=== PATIENT | female | born 1975 | race Caucasian/White ===

== ENCOUNTER 2021-05-23 14:18 | Emergency (ER) | payer OTHER ==
[~2021-05-23] VITALS: Ht 175.3 cm; Wt 260.0 kg
[2021-05-23 14:40] VITALS: BP 149/86
[2021-05-23 15:20] LABS: BASOPHILS % (AUTO) 0.5 % (0-1); EOSINOPHILS % (AUTO) 0 % (0-6); HEMATOCRIT 41.5 % (35.0-45.0); HEMOGLOBIN 14.4 g/dl (12.0-16.0); LYMPHOCYTES # (AUTO) 0.9 X10'3 (1.1-4.8); LYMPHOCYTES % (AUTO) 19.8 % (21-51); MEAN CORPUSCULAR HEMOGLOBIN 30.4 PG (27.0-31.0); MEAN CORPUSCULAR HGB CONC 34.6 g/dL (33.0-36.5); MEAN CORPUSCULAR VOLUME 87.7 FL (78-98); MEAN PLATELET VOLUME 7.9 FL (7.4-10.4); MONOCYTES # (AUTO) 0.4 X10'3 (0-0.9); MONOCYTES % (AUTO) 8.4 % (2-12); NEUTROPHILS # (AUTO) 3.1 X10'3 (1.8-7.7); NEUTROPHILS % (AUTO) 71.3 % (42-75); PLATELET COUNT 257 X10'3 (140-440); RED BLOOD COUNT 4.74 X10'6 (4.20-5.60); RED CELL DISTRIBUTION WIDTH 12.9 % (11.5-14.5); WHITE BLOOD COUNT 4.3 X10'3 (4.5-11.0)
[2021-05-23 15:30] LABS: ALANINE AMINOTRANSFERASE 36 U/L (12-78); ALBUMIN 3.5 G/DL (3.4-5.0); ALBUMIN/GLOBULIN RATIO 0.8 (1.1-1.5); ALKALINE PHOSPHATASE 75 IU/L (46-116); ANION GAP 9 (8-16); ASPARTATE AMINO TRANSFERASE 31 U/L (10-37); BILIRUBIN,TOTAL 0.4 MG/DL (0.1-1.0); BLOOD UREA NITROGEN 9 MG/DL (7-18); BUN/CREATININE RATIO 12.3 (6.6-38.0); CALCIUM 8.5 MG/DL (8.5-10.1); CHLORIDE 102 MMOL/L (99-107); CREATININE 0.73 MG/DL (0.40-0.90); GLUCOSE 105 MG/DL (70-104); POTASSIUM 3.7 MMOL/L (3.5-5.1); SODIUM 138 MMOL/L (135-145); TOTAL CARBON DIOXIDE 27.2 MMOL/L (24-32); TOTAL PROTEIN 7.8 G/DL (6.4-8.2); eGFR 85 ML/MIN
[2021-05-23] MEDS ORDERED: iohexol 350MG/ML 100ml bottle IV ONE (17:34)
[2021-05-23] MEDS ORDERED: SOTROVIMAB 500mg injection 500 MG in normal saline 100ml IV soln 100 ML IV ONE (18:45)
[2021-05-23] MEDS ORDERED: BUDE180A INH (19:04)
[2021-05-23] MEDS ORDERED: ALBU6.7H9 INH (19:04)
[2021-05-23] MEDS ORDERED: LEVO500T90 PO (19:04)
[2021-05-23] MEDS ORDERED: PRED10TA23 PO (19:04)
[2021-05-25] MEDS ORDERED: ALB0.5UD IH (14:34)
== END 2021-05-23 20:33 | disposition home or self-care (01) ==
LOC: ER 14:19
DX: U07.1 COVID-19 (principal); J12.82 Pneumonia due to coronavirus disease 2019; E06.3 Autoimmune thyroiditis; Z88.6 Allergy status to analgesic agent; Z79.899 Other long term (current) drug therapy
CPT/HCPCS: 36415; 71045; 71275; 80053; 83880; 84484; 85025; 93005; 99285; J3490; M0247; Q0247; Q9967

== ENCOUNTER 2021-10-03 14:01 | Emergency (ER) | payer OTHER ==
[~2021-10-03] VITALS: Ht 175.3 cm; Wt 118.2 kg
[~2021-10-03 14:01] MED LIST: ALBU6.7H9 INH; BUDE180A INH
[2021-10-03] MEDS ORDERED: diazepam 5mg tablet PO ONE ×2 (14:55→21:00)
[2021-10-03] MEDS ORDERED: ondansetron 4mg rapidly disintigrating tab PO ONE (14:55)
[2021-10-03] MEDS ORDERED: meclizine 12.5mg tablet PO ONE ×2 (14:55→21:00)
[2021-10-03] MEDS ORDERED: normal saline 1000ML IV soln IVB ONE (17:45)
[2021-10-03 19:17] LABS: BASOPHILS % (AUTO) 0.6 % (0-1); EOSINOPHILS # (AUTO) 0.1 X10'3 (0-0.9); EOSINOPHILS % (AUTO) 0.8 % (0-6); HEMOGLOBIN 13.9 g/dl (12.0-16.0); LYMPHOCYTES % (AUTO) 13.4 % (21-51); MEAN CORPUSCULAR HEMOGLOBIN 30.6 PG (27.0-31.0); MEAN CORPUSCULAR HGB CONC 34.7 g/dL (33.0-36.5); MEAN CORPUSCULAR VOLUME 88.2 FL (78-98); MEAN PLATELET VOLUME 8.4 FL (7.4-10.4); MONOCYTES # (AUTO) 0.4 X10'3 (0-0.9); MONOCYTES % (AUTO) 4.6 % (2-12); NEUTROPHILS # (AUTO) 6.1 X10'3 (1.8-7.7); NEUTROPHILS % (AUTO) 80.6 % (42-75); PLATELET COUNT 299 X10'3 (140-440); RED BLOOD COUNT 4.53 X10'6 (4.20-5.60); RED CELL DISTRIBUTION WIDTH 12.9 % (11.5-14.5); WHITE BLOOD COUNT 7.6 X10'3 (4.5-11.0)
[2021-10-03 19:26] LABS: ALANINE AMINOTRANSFERASE 22 U/L (12-78); ALBUMIN 3.6 G/DL (3.4-5.0); ALBUMIN/GLOBULIN RATIO 0.9 (1.1-1.5); ALKALINE PHOSPHATASE 75 IU/L (46-116); ANION GAP 9 (8-16); ASPARTATE AMINO TRANSFERASE 15 U/L (10-37); BILIRUBIN,TOTAL 0.3 MG/DL (0.1-1.0); BLOOD UREA NITROGEN 15 MG/DL (7-18); CHLORIDE 105 MMOL/L (99-107); CREATININE 0.94 MG/DL (0.40-0.90); GLUCOSE 107 MG/DL (70-104); POTASSIUM 3.8 MMOL/L (3.5-5.1); SODIUM 139 MMOL/L (135-145); TOTAL CARBON DIOXIDE 25.4 MMOL/L (24-32); TOTAL PROTEIN 7.6 G/DL (6.4-8.2); eGFR 64 ML/MIN
[2021-10-03] MEDS: diazepam inj 5 MG/ML inj. IV ONE ×2 (19:58→20:16)
--- NOTE | 2021-10-03 20:06 | NUR ---
Pt refused IV valium, MD berry made aware.
--- NOTE | 2021-10-03 20:16 | NUR ---
Pt. refused IV Diazepam. Can not waste in [facility]. Pharmacy notified of issue. Wasted the remaining 5mg/1ml with MART[facility] Oliva.
[2021-10-03 20:20] LABS: CLARITY,URINE CLEAR (Clear); COLOR,URINE YELLOW (Yellow); GLUCOSE, URINE NEGATIVE (Neg); KETONES,URINE NEGATIVE (Neg); LEUKOCYTE ESTERASE ,URINE NEGATIVE (Neg); NITRITES, URINE NEGATIVE (Neg); OCCULT BLOOD,URINE NEGATIVE (Neg); PH,URINE 6.5 (4.8-8.0); PROTEIN,URINE NEGATIVE (Neg); UROBILINOGEN,URINE 0.2 E.U/dL (0.2-1.0)
[2021-10-03 20:21] LABS: URINE HCG NEGATIVE (NEG)
[2021-10-03 20:28] LABS: UA COLLECTION TYPE CLN CATCH MIDSTREAM
[2021-10-03] MEDS ORDERED: ondansetron/PF 4mg/2ml inj IV ONE (21:00)
[2021-10-03] MEDS ORDERED: MECL-159 PO (21:02)
[2021-10-03] MEDS ORDERED: DIAZ5TAB22 PO (21:02)
[2021-10-03] MEDS ORDERED: ONDA4TAB12 PO (21:02)
[2021-10-03 22:01] VITALS: BP 146/72
== END 2021-10-03 22:04 | disposition home or self-care (01) ==
LOC: ER 14:02
DX: R42 Dizziness and giddiness (principal); R51.9 Headache, unspecified; Z88.6 Allergy status to analgesic agent; Z79.899 Other long term (current) drug therapy
CPT/HCPCS: 36415; 70450; 80053; 81003; 81025; 85025; 96374; 99284; J2405; J7030; J8597